=== PATIENT | female | born 1940 | race Caucasian/White ===

== ENCOUNTER 2017-11-22 15:32 | Emergency (ER) | payer MEDICARE ==
[2017-11-22 17:36] VITALS: BP 174/86; PULSE 71; O2SAT 100
--- NOTE | 2017-11-22 17:42 | ERPHSYRPT ---
- History of Present Illness Time Seen by Provider: 11/22/17 17:30 Source: patient, family (sister) Patient Subjective Stated Complaint: tripped and fell on rubber mat at 1400 today injuring forehead and nose. also having pain to right ear and right knee Triage Nursing Assessment: ambulated to room per self. skin w/d, color normal, resp nonlabored. small red area to right knee. abrasions to forehead and nose. slight pain to right ear. a/o times three. 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 Tripped on mat. Fell forward and hurt her head, face, and right knee. Nosebleed but it has stopped. Unsure last tetanus vaccine. No other injuries. No LOC. Some neck pain. No back pain. Lives at home with her . Occurred: this afternoon Loss of Consciousness: no loss of consciousness Severity of Pain-Max: mild Severity of Pain-Current: mild Allergies/Adverse Reactions: aspirin Allergy (Verified 11/22/17 17:27) Home Medications: Clopidogrel Bisulfate 75 mg [PLAVIX 75 MG Tablet] 75 mg PO DAILY 05/31/12 [ History] Potassium Chloride [Micro-K] 8 meq PO DAILY 05/31/12 [History] Simvastatin 20Mg [Zocor 20Mg] 40 mg PO DAILY 05/31/12 [History] Enalapril Maleate 10 mg [Vasotec 10 MG] 1 tab PO DAILY 09/24/15 [History] Flaxseed Oil [Flax Seed Oil] 1 tab PO DAILY 09/24/15 [History] Levofloxacin [Levaquin 500 MG Tablet] 500 mg PO 09/24/15 [History] Levothyroxine Sodium 75 Mcg [Synthroid 75 Mcg] 1 tab PO DAILY 09/24/15 [ History] Metoprolol Tartrate 50 mg [Lopressor 50 MG] 1 tab PO DAILY 09/24/15 [ History] Alendronate Sodium 70 mg [Fosamax 70 MG] 70 mg PO WEEKLY 11/22/17 [History ] Calcium Carbonate/Vitamin D3 [Caltrate 600 + D Soft Chew Tab] 1 each PO DAILY [History] Cholecalciferol (Vitamin D3) [Vitamin D3] 1,000 unit PO DAILY 11/22/17 [History] Cyanocobalamin (Vitamin B-12) [Vitamin B12] 2,500 mcg PO DAILY 11/22/17 [History ] Iron 65 mg PO DAILY 11/22/17 [History] Mv,Gerardo,Min/Iron/Folic Acid/Lut [Complete Multi Tablet] 1 each PO DAILY 11/22/17 [History] Hx Tetanus, Diphtheria Vaccination/Date Given: No Hx Influenza Vaccination/Date Given: Yes Hx Pneumococcal Vaccination/Date Given: Yes - Review of Systems Constitutional: No Symptoms Eyes: No Vision Changes Ears, Nose, & Throat: No Symptoms Respiratory: No Symptoms Cardiac: No Chest Pain, No Syncope Abdominal/Gastrointestinal: No Abdominal Pain, No Nausea, No Vomiting Musculoskeletal: Neck Pain, Fall, Injury, Joint Pain (right knee), No Back Pain Neurological: Headache, No Dizziness, No Focal Weakness, No Parasthesia All Other Systems: Reviewed and Negative - Past Medical History Pertinent Past Medical History: Yes Neurological History: Stroke Cardiac History: High Cholesterol, Hypertension Musculoskeletal History: Arthritis History: Other Psycho-Social History: No Pertinent History Female Reproductive Disorders: No Pertinent History Other Medical History: KIDNEY STONES - Past Surgical History Past Surgical History: Yes Gastrointestinal: Appendectomy, Cholecystectomy - Social History Smoking Status: Never smoker Exposure to second hand smoke: Yes Drug Use: none Patient Lives Alone: No - Female History Hx Now: No - Nursing Vital Signs Nursing Vital Signs: Initial Vital Signs Temperature 97.7 F 11/22/17 17:21 Pulse Rate 71 11/22/17 17:21 Respiratory Rate 16 11/22/17 17:21 Blood Pressure 174/86 11/22/17 17:21 O2 Sat by Pulse Oximetry 100 11/22/17 17:21 Pain Scale Pain Intensity 3 - [place] Coma Score Best Eye Response ([place]): (4) open spontaneously Best Verbal Response ([place]): (5) oriented Best Motor Response ([place]): (6) obeys commands [place] Total: 15 - Physical Exam General Appearance: alert Head Injury: swelling (over nose, abrasion and contusion right forehead) Eye Exam: PERRL/EOMI ENT Exam: airway nml, other (no nasal septal hematoma) Neck Exam: mid-line tenderness Respiratory/Chest Exam: normal breath sounds, No chest tenderness, No respiratory distress Cardiovascular Exam: normal heart sounds, regular rate/rhythm Gastrointestinal Exam: soft, No tenderness, No distention Back Exam: normal inspection, No vertebral tenderness Extremity Exam: normal inspection, normal range of motion, other (mild swelling of legs, right knee has mild tenderness) Neurologic Exam: alert, oriented x 3, 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, 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, sensation nml, No motor deficits Skin Exam: warm, dry, No rash SpO2 Interpretation: normal SpO2: 100 Oxygen Delivery: Room Air - Course Nursing assessment & vital signs reviewed: Yes Ordered Tests: Active Orders 24 hr Category Date Time Status Cold Application STAT Care 11/22/17 17:39 Active CERVICAL SPINE WO CONTRAST [CT] Stat Exams 11/22/17 18:47 Taken FACIAL BONES WO CONTRAST [CT] Stat Exams 11/22/17 18:40 Taken HEAD WITHOUT CONTRAST [CT] Stat Exams 11/22/17 18:38 Taken KNEE (3 VIEWS) Stat Exams 11/22/17 17:37 Taken - Progress Progress Note: 11/22/17 19:19 Cervical spine: joelee 6:56 PM 11/22/2017: Stable DDD compared to 09/24/15. No new or acute findings. Facial: joelee 6:54 PM 11/22/2017: No comps. Minimally depressed tiny R nasal bone fx. R TMJ DJD. Hard palate screws/hardware. 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 No new/acute findings. KNee not tender at superior patella. Will use alejandro, ice, walker, and follow up Dr Nia Montes De Oca. Counseled pt/family regarding: diagnosis, need for follow-up, rad results - Departure Time of Disposition: 19:20 Departure Disposition: Home Clinical Impression: Closed head injury Fall Qualifiers: Encounter type: initial encounter Qualified Code(s): W19.XXXA - Unspecified fall, initial encounter Nasal bone fracture Qualifiers: Encounter type: initial encounter Fracture type: closed Qualified Code(s): S02.2XXA - Fracture of nasal bones, initial encounter for closed fracture Knee sprain Qualifiers: Encounter type: initial encounter Involved ligament of knee: unspecified ligament Laterality: right Qualified Code(s): S83.91XA - Sprain of unspecified site of right knee, initial encounter Condition: Stable Critical Care Time: No Referrals: NIA MONTES DE OCA [Primary Care Provider] - Instructions: Preventing Falls, Going Up and Down Curbs or Stairs With a Walker or Crutches, Nose Fracture Additional Instructions: HEAD INJURY 1. A responsible person should observe the patient at home for 24 hours. 2. If any of the following signs or symptoms are observed or occur, call your family physician or return to the emergency department: A. Behavior change B. Persistent vomiting C. Unequal pupils D. Increasing drowsiness E. Difficulty in arousing the patient F. Severe headache G. Lump on head increasing in size Alejandro wrap to the right knee. Ice packs off and on. Tylenol or aleve as directed. Use a walker. Follow up with Dr Nia Montes De Oca.
--- NOTE | 2017-11-23 08:39 | XRAY ---
Indication: Pain and facial injury following fall. Multiple contiguous axial images obtained through the head without contrast. Comparison: September 24, 2015. Again old left cerebellar infarct. No acute intracranial hemorrhage, hydrocephalus, or mass effect. Villagran-white matter differentiation preserved. Fourth ventricle is midline. Bony calvarium intact. Visualized paranasal sinuses and mastoid air cells are clear. CT facial bones and CT cervical spine reported separately. Impression: Stable old left cerebellar infarct. No new or acute intracranial abnormalities. CT DI 47.50
--- NOTE | 2017-11-23 08:43 | XRAY ---
Indication: Pain and facial injury following fall. Multiple contiguous axial images obtained through the cervical spine. Sagittal and coronal reformatted images obtained. Comparison: September 24, 2015. Axial images again negative for acute fracture, suspicious bony lesions, or spinal canal stenosis. There remains mild multilevel degenerative endplate spurring and minimal multilevel bilateral degenerative facet arthropathy. Sagittal and coronal reformatted images demonstrates normal alignment with stable C6-C7 disc space narrowing. No acute compression fracture, subluxation, or jumped facet. Normal-appearing craniocervical junction. Visualized noncontrasted soft tissues again demonstrates minimal carotid calcifications bilaterally. Lung apices are clear. CT facial bones and CT head reported separately. Impression: 1. Negative acute fracture/subluxation. 2. Again incidental multilevel degenerative changes. CT DI 110.82
--- NOTE | 2017-11-23 08:47 | XRAY ---
Indication: Pain following fall. Comparison: None 3 views of the right knee demonstrates tibial tuberosity and suprapatellar spurring with small posterior fabella. No other bony, articular, or soft tissue abnormalities.
--- NOTE | 2017-11-23 08:47 | XRAY ---
Indication: Pain and facial injury following fall. Multiple contiguous axial images obtained through the facial bones. Comparison: None. There is tiny minimally depressed right nasal bone fracture. No other fracture or suspicious bony lesions. Orbits including roof, tse, and floors intact. Floor of the right maxillary sinus demonstrates minimal mucosal thickening. Remaining paranasal sinuses and nasal passages are clear. Patient is edentulous. There are multiple bilateral hard palate fixation screws/hardware. Moderate right TMJ degenerative changes. Visualized noncontrasted soft tissues unremarkable. CT head and CT cervical spine reported separately. Impression: 1. Tiny right nasal bone fracture. 2. Minimal right maxillary sinus disease and moderate right TMJ degenerative changes. CT DI 59.47
== END 2017-11-22 19:33 | disposition home or self-care (01) ==
LOC: ED 15:32
DX: S83.91XA Sprain of unspecified site of right knee, initial encounter (principal); S02.2XXA Fracture of nasal bones, initial encounter for closed fracture; W01.0XXA Fall on same level from slipping, tripping and stumbling without subsequent striking against object, initial encounter; Y92.59 Other trade areas as the place of occurrence of the external cause; Z79.899 Other long term (current) drug therapy; I10 Essential (primary) hypertension; E78.00 Pure hypercholesterolemia, unspecified; M54.2 Cervicalgia; M25.561 Pain in right knee; R51 Headache
CPT/HCPCS: 70450; 70486; 72125; 73562; 99283

== ENCOUNTER 2017-12-22 08:47 | Emergency (ER) | payer MEDICARE ==
--- NOTE | 2017-12-22 09:03 | ERPHSYRPT ---
- History of Present Illness Time Seen by Provider: 12/22/17 08:55 Source: patient Exam Limitations: no limitations Physician History: mild ache pain of the left ankle and foot for one day after slip and twisted it , painful ambulation, but pt refused pain med, no bleeding or other injury, not dizzy Occurred: yesterday Quality: constant Severity of Pain-Max: mild Lower Extremities Pain: foot: left, ankle: left Associated Symptoms: No dizzy Allergies/Adverse Reactions: aspirin Allergy (Verified 12/22/17 09:00) Home Medications: Clopidogrel Bisulfate 75 mg [PLAVIX 75 MG Tablet] 75 mg PO DAILY 05/31/12 [ History] Potassium Chloride [Micro-K] 8 meq PO DAILY 05/31/12 [History] Simvastatin 20Mg [Zocor 20Mg] 40 mg PO DAILY 05/31/12 [History] Enalapril Maleate 10 mg [Vasotec 10 MG] 1 tab PO DAILY 09/24/15 [History] Flaxseed Oil [Flax Seed Oil] 1 tab PO DAILY 09/24/15 [History] Levothyroxine Sodium 75 Mcg [Synthroid 75 Mcg] 1 tab PO DAILY 09/24/15 [ History] Metoprolol Tartrate 50 mg [Lopressor 50 MG] 1 tab PO DAILY 09/24/15 [ History] Alendronate Sodium 70 mg [Fosamax 70 MG] 70 mg PO WEEKLY 11/22/17 [History ] Calcium Carbonate/Vitamin D3 [Caltrate 600 + D Soft Chew Tab] 1 each PO DAILY [History] Cholecalciferol (Vitamin D3) [Vitamin D3] 1,000 unit PO DAILY 11/22/17 [History] Cyanocobalamin (Vitamin B-12) [Vitamin B12] 2,500 mcg PO DAILY 11/22/17 [History ] Iron 65 mg PO DAILY 11/22/17 [History] Mv,Gerardo,Min/Iron/Folic Acid/Lut [Complete Multi Tablet] 1 each PO DAILY 11/22/17 [History] Hx Tetanus, Diphtheria Vaccination/Date Given: No Hx Influenza Vaccination/Date Given: Yes Hx Pneumococcal Vaccination/Date Given: Yes - Review of Systems Constitutional: No Fever Respiratory: No Cough Cardiac: No Chest Pain Abdominal/Gastrointestinal: No Abdominal Pain Musculoskeletal: No Back Pain, No Neck Pain Skin: No Symptoms Neurological: No Dizziness - Past Medical History Pertinent Past Medical History: Yes Neurological History: Stroke Cardiac History: High Cholesterol, Hypertension Musculoskeletal History: Arthritis History: Other Psycho-Social History: No Pertinent History Female Reproductive Disorders: No Pertinent History Other Medical History: KIDNEY STONES - Past Surgical History Past Surgical History: Yes Gastrointestinal: Appendectomy, Cholecystectomy - Social History Smoking Status: Never smoker Exposure to second hand smoke: Yes Drug Use: none Patient Lives Alone: No - Nursing Vital Signs Nursing Vital Signs: Initial Vital Signs Temperature 98.1 F 12/22/17 08:54 Pulse Rate 48 L 12/22/17 08:54 Respiratory Rate 18 12/22/17 08:54 O2 Sat by Pulse Oximetry 99 12/22/17 08:54 Pain Scale Pain Intensity 6 - Physical Exam General Appearance: no apparent distress, other (tender sts lateral left ankle, rom limited by pain, sen and pulses intact, nontender knee) Neck Exam: normal inspection Mental Status Exam: alert, oriented x 3 Skin Exam: normal color, warm, dry - Course Nursing assessment & vital signs reviewed: Yes - Radiology Exams Ankle X-ray Interpretation: Discussed w/ radiologist, Other (fx of distal left fibula ) Ordered Tests: Active Orders 24 hr Category Date Time Status Splint STAT Care 12/22/17 09:43 Ordered ANKLE (3 VIEWS) Stat Exams 12/22/17 08:58 Completed FOOT (MINIMUM 3 VIEWS) Stat Exams 12/22/17 08:58 Completed - Progress Progress: improved Progress Note: 12/22/17 09:47 splint applied nonweight bearing tylenol, ice and elevation see [facility] [phone] return if worse Discussed with : Adiel ([facility]) Will see patient in: office Counseled pt/family regarding: diagnosis, need for follow-up, rad results - Departure Time of Disposition: 09:48 Departure Disposition: Home Clinical Impression: Fracture, ankle Qualifiers: Encounter type: initial encounter Fracture type: closed Laterality: left Qualified Code(s): S82.892A - Other fracture of left lower leg, initial encounter for closed fracture Condition: Stable Critical Care Time: No Referrals: NIA MONTES DE OCA [Primary Care Provider] - Instructions: Foot Fracture (DC)
--- NOTE | 2017-12-22 09:40 | XRAY ---
Indication: Pain following fall. Comparison: None 3 views of the left ankle demonstrates minimally displaced distal fibular oblique fracture with soft tissue swelling. Elsewhere osteopenia, moderate heel spurs, posterior heel orthopedic tacks, and partial Achilles tendon calcifications.
--- NOTE | 2017-12-22 09:40 | XRAY ---
Indication: Pain following fall. Comparison: None 3 nonweightbearing views of the left foot demonstrates minimally displaced distal fibular oblique fracture with soft tissue swelling. Elsewhere osteopenia, moderate heel spurs, posterior heel orthopedic tacks, cuboid accessory ossicles, and partial Achilles tendon calcifications.
[2017-12-22 10:37] VITALS: BP 154/48; PULSE 44; O2SAT 98
== END 2017-12-22 10:38 | disposition home or self-care (01) ==
LOC: ED 08:47
DX: S82.892A Other fracture of left lower leg, initial encounter for closed fracture (principal); Z79.01 Long term (current) use of anticoagulants; Z79.899 Other long term (current) drug therapy; X50.1XXA Overexertion from prolonged static or awkward postures, initial encounter
CPT/HCPCS: 73610; 73630; 99283

== ENCOUNTER 2020-08-07 01:20 | Emergency (ER) | payer MEDICARE ==
[2020-08-07 01:25] VITALS: O2SAT 98
[2020-08-07] MEDS ORDERED: MOTRIN 600 MG PO ONE (01:35)
[2020-08-07] MEDS ORDERED: TYLENOL EXTRA STRENGTH 500 MG PO STA (01:35)
--- NOTE | 2020-08-07 01:35 | ERPHSYRPT ---
- History of Present Illness Time Seen by Provider: 08/07/20 01:22 Source: patient Exam Limitations: no limitations Physician History: Patient is here with a fall at home just prior to arrival. Patient states that she fell out of bed. Initially only complaining of right shoulder pain per EMS. Initially called out as a lift assist. However, given her continued shoulder pain she requested to be brought to the hospital. She denies any other injuries. Denies any chest pain, fever, chills, nausea, vomiting, shortness of breath. She has not tried to make it better or worse. She not taken any Tylenol, ibuprofen. Location:right shoulder Quality: sharp Radiation: none Severity: moderate Duration: Just [employer] Timing: after fall Modifying factors/associated signs and symptoms: none tried Timing/Duration: today Severity: mild Modifying Factors: Improves With: movement Allergies/Adverse Reactions: aspirin Allergy (Verified 12/22/17 09:00) Home Medications: Simvastatin 20Mg [Zocor 20Mg] 40 mg PO DAILY 05/31/12 [History] Levothyroxine Sodium 75 Mcg [Synthroid 75 Mcg] 1 tab PO DAILY 09/24/15 [History] Metoprolol Tartrate 50 mg [Lopressor 50 MG] 1 tab PO DAILY 09/24/15 [History] Cholecalciferol (Vitamin D3) [Vitamin D3] 400 unit PO DAILY 11/22/17 [History] Cyanocobalamin (Vitamin B-12) [Vitamin B12] 500 mcg PO DAILY 11/22/17 [History] Iron 65 mg PO DAILY 11/22/17 [History] Mv,Gerardo,Min/Iron/Folic Acid/Lut [Complete Multi Tablet] 1 each PO DAILY 11/22/17 [History] Ascorbic Acid [Vitamin C] 1,000 mg PO DAILY 08/07/20 [History] C,E,Zinc,Copper 11/Nbgod7v/Lut [Ocuvite Adult 50 Plus Softgel] 1 cap PO DAILY 08/07/20 [History] Clopidogrel Bisulfate [Clopidogrel] 75 mg PO DAILY 08/07/20 [History] Docusate Sodium [Stool Softener] 50 mg PO DAILY PRN PRN 08/07/20 [History] Hydralazine HCl 50 mg PO TID 08/07/20 [History] Omeprazole 20 mg PO TID 08/07/20 [History] Hx Tetanus, Diphtheria Vaccination/Date Given: No Hx Influenza Vaccination/Date Given: Yes Hx Pneumococcal Vaccination/Date Given: Yes - Review of Systems Constitutional: No Fever, No Chills Eyes: No Symptoms Ears, Nose, & Throat: No Symptoms Respiratory: No Cough, No Dyspnea Cardiac: No Chest Pain, No Edema, No Syncope Abdominal/Gastrointestinal: No Abdominal Pain, No Nausea, No Vomiting, No Diarrhea Genitourinary Symptoms: No Dysuria Musculoskeletal: Other (right shoulder pain), No Back Pain, No Neck Pain Skin: No Rash Neurological: No Dizziness, No Focal Weakness, No Sensory Changes Psychological: No Symptoms Endocrine: No Symptoms All Other Systems: Reviewed and Negative - Past Medical History Pertinent Past Medical History: Yes Neurological History: Stroke Cardiac History: High Cholesterol, Hypertension Respiratory History: Pneumonia Endocrine Medical History: Hypothyroidism Musculoskeletal History: Fractures, Osteoarthritis History: Other Psycho-Social History: No Pertinent History Female Reproductive Disorders: No Pertinent History Other Medical History: HX FX LEFT ANKLE WITH ORIF. PER PATIENT ACHILLES TENDON TEARS BILATERALLY - LEFT REPAIRED ABOUT 4 YEARS AGO. STATES HAD A STROKE AT 18 WITH A "BUSTED BLOOD VESSEL IN THE BACK OF MY HEAD AND WAS IN THE [facility] 6 WEEKS: AFFECTING LEFT SIDE AND "HAD TO LEARN TO WALK AGAIN". HAD ANOTHER STROKE 10 YEARS AGO AFFECTING GAIT BUT WAS NOT HOSPITALIZED. STATES SHE HAS MINI STROKES WHICH MAKE HER SLEEPY AND AFFECT HER WALKING BRIEFLY THEN WILL GET BETTER. - Past Surgical History Past Surgical History: Yes Gastrointestinal: Appendectomy, Cholecystectomy - Social History Smoking Status: Never smoker Exposure to second hand smoke: Yes Drug Use: none Patient Lives Alone: No - Nursing Vital Signs Nursing Vital Signs: Initial Vital Signs Temperature 98.1 F 08/07/20 01:20 Pulse Rate 71 08/07/20 01:20 Respiratory Rate 20 08/07/20 01:20 Blood Pressure 193/73 08/07/20 01:20 O2 Sat by Pulse Oximetry 98 08/07/20 01:20 Pain Scale Pain Intensity 2 - Physical Exam General Appearance: no apparent distress, alert Eye Exam: PERRL/EOMI, eyes nml inspection Ears, Nose, Throat Exam: normal ENT inspection, TMs normal, pharynx normal, moist mucous membranes Neck Exam: normal inspection, non-tender, supple, full range of motion Respiratory Exam: normal breath sounds, lungs clear, No respiratory distress Cardiovascular Exam: regular rate/rhythm, normal heart sounds, normal peripheral pulses Gastrointestinal/Abdomen Exam: soft, normal bowel sounds, No tenderness, No mass Back Exam: normal inspection, normal range of motion, No CVA tenderness, No vertebral tenderness Extremity Exam: normal inspection, normal range of motion, pelvis stable Neurologic Exam: alert, oriented x 3, cooperative, normal mood/affect, nml cerebellar function, nml station & gait, sensation nml, No motor deficits Skin Exam: normal color, warm, dry, No rash Lymphatic Exam: No adenopathy SpO2 Interpretation: normal SpO2: 98 Comments: 08/07/20 01:34 Right shoulder pain. No obvious deformity, sensation intact, 2+ capillary refill, 2 point tactile discrimination intact. 5 out of 5 strength. Full range of motion with some pain. Compartments are soft, nontender. Overlying skin shows no tenting, bruising, ecchymosis. - Course Nursing assessment & vital signs reviewed: Yes Ordered Tests: Active Orders 24 hr Category Date Time Status EKG-ER Only STAT Care 08/07/20 01:23 Active CERVICAL SPINE WO CONTRAST [CT] Stat Exams 08/07/20 01:52 Taken CHEST 1 VIEW (PORTABLE) Stat Exams 08/07/20 01:24 Taken HEAD WITHOUT CONTRAST [CT] Stat Exams 08/07/20 01:22 Taken SHOULDER Stat Exams 08/07/20 01:53 Taken CBC W DIFF Stat Lab 08/07/20 02:10 Completed CMP Stat Lab 08/07/20 02:10 Completed LIPASE Stat Lab 08/07/20 02:10 Completed Lactic Acid Stat Lab 08/07/20 02:20 Completed TROPONIN Q3H Lab 08/07/20 02:10 Completed TROPONIN Q3H Lab 08/07/20 05:00 Ordered TROPONIN Q3H Lab 08/07/20 08:00 Ordered TROPONIN Q3H Lab 08/07/20 11:00 Ordered TROPONIN Q3H Lab 08/07/20 14:00 Ordered Medication Summary Discontinued Medications Generic Name Dose Route Start Last Admin Trade Name Freq PRN Reason Stop Dose Admin Acetaminophen 1,000 mg 08/07/20 01:35 08/07/20 02:33 Tylenol Extra Strength 500 Mg PO 08/07/20 01:36 1,000 mg STAT STA Administration Acetaminophen Confirm 08/07/20 02:19 Tylenol Extra Strength 500 Mg Administered 08/07/20 02:20 Dose 1,000 mg .ROUTE .STK-MED ONE Ibuprofen 600 mg 08/07/20 01:35 08/07/20 02:30 Motrin 600 Mg PO 08/07/20 01:36 600 mg STAT ONE Administration Ibuprofen Confirm 08/07/20 02:19 Motrin 600 Mg Administered 08/07/20 02:20 Dose 600 mg .ROUTE .STK-MED ONE Labetalol HCl 10 mg 08/07/20 02:36 Trandate 20 Mg/5 Ml Syringe IV 08/07/20 02:37 STAT ONE Labetalol HCl Confirm 08/07/20 02:48 Trandate 20 Mg/5 Ml Syringe Administered 08/07/20 02:49 Dose 20 mg IV .STK-MED ONE Lab/Rad Data: Laboratory Result Diagrams 08/07/20 02:10 08/07/20 02:10 Laboratory Results 08/07/20 08/07/20 08/07/20 Range/Units 02:20 02:10 02:10 WBC (4.0-10.5) K/mm3 RBC (4.1-5.4) M/mm3 Hgb (12.0-16.0) gm/dl Hct (35-47) % MCV (78-100) fl MCH (26-32) pg MCHC (32-36) g/dl RDW (11.5-14.0) % Plt Count (150-450) K/mm3 MPV (7.5-11.0) fl Gran % (36.0-66.0) % Eos # (Auto) (0-0.5) Absolute Lymphs (auto) (1.0-4.6) Absolute Monos (auto) (0.0-1.3) Lymphocytes % (24.0-44.0) % Monocytes % (0.0-12.0) % Eosinophils % (0.00-5.0) % Basophils % (0.0-0.4) % Absolute Granulocytes (1.4-6.9) Basophils # (0-0.4) Sodium 139 (137-145) mmol/L Potassium 3.0 L (3.5-5.1) mmol/L Chloride 102 (98-107) mmol/L Carbon Dioxide 30 (22-30) mmol/L Anion Gap 9.4 (5-15) MEQ/L BUN 12 (7-17) mg/dL Creatinine 0.97 (0.52-1.04) mg/dL Estimated GFR 58.6 ML/MIN Glucose 134 H (74-106) mg/dL Lactic Acid 1.9 (0.4-2.0) Calcium 10.4 H (8.4-10.2) mg/dL Total Bilirubin 0.70 (0.2-1.3) mg/dL AST 38 H (14-36) U/L ALT 16 (0-35) U/L Alkaline Phosphatase 109 (38-126) U/L Troponin I < 0.012 (0.000-0.034) ng/mL Serum Total Protein 7.7 (6.3-8.2) g/dL Albumin 4.1 (3.5-5.0) g/dL Lipase 130 (23-300) U/L 08/07/20 Range/Units 02:10 WBC 14.5 H (4.0-10.5) K/mm3 RBC 4.23 (4.1-5.4) M/mm3 Hgb 12.6 (12.0-16.0) gm/dl Hct 38.8 (35-47) % MCV 91.7 (78-100) fl MCH 29.8 (26-32) pg MCHC 32.5 (32-36) g/dl RDW 14.0 (11.5-14.0) % Plt Count 247 (150-450) K/mm3 MPV 12.0 H (7.5-11.0) fl Gran % 87.8 H (36.0-66.0) % Eos # (Auto) 0.06 (0-0.5) Absolute Lymphs (auto) 0.81 L (1.0-4.6) Absolute Monos (auto) 0.88 (0.0-1.3) Lymphocytes % 5.6 L (24.0-44.0) % Monocytes % 6.1 (0.0-12.0) % Eosinophils % 0.4 (0.00-5.0) % Basophils % 0.1 (0.0-0.4) % Absolute Granulocytes 12.73 H (1.4-6.9) Basophils # 0.02 (0-0.4) Sodium (137-145) mmol/L Potassium (3.5-5.1) mmol/L Chloride (98-107) mmol/L Carbon Dioxide (22-30) mmol/L Anion Gap (5-15) MEQ/L BUN (7-17) mg/dL Creatinine (0.52-1.04) mg/dL Estimated GFR ML/MIN Glucose (74-106) mg/dL Lactic Acid (0.4-2.0) Calcium (8.4-10.2) mg/dL Total Bilirubin (0.2-1.3) mg/dL AST (14-36) U/L ALT (0-35) U/L Alkaline Phosphatase (38-126) U/L Troponin I (0.000-0.034) ng/mL Serum Total Protein (6.3-8.2) g/dL Albumin (3.5-5.0) g/dL Lipase (23-300) U/L - Progress Progress: improved Progress Note: 08/07/20 01:[address] head and neck. We will also obtain shoulder and CXR. 08/07/20 02:03 ED critical care statement As staff physician, I have provided critical care. Time: 45 mins Criteria for critical illness: Cerebellar hemorrhage, subdural hematoma, head bleed, traumatic injury, traumatic fall Treatment and management provided include: Coordination of management with ETC care team, consultants, and inpatient care team. [id number] assessment of condition and response to therapy. Review and interpretation of emergent diagnostic testing. Medical chart review and completion. Direction and immediate supervision of the following therapy: Critical care was time spent personally by me on the following activities: blood draw for specimens, development of treatment plan with patient or surrogate, discussions with consultants, discussions with primary provider, interpretation of cardiac output measurements, evaluation of patient's response to treatment, examination of patient, obtaining history from patient or surrogate, ordering and performing treatments and interventions, ordering and review of laboratory studies, ordering and review of radiographic studies, pulse oximetry, re-evaluation of patient's condition and review of old charts. This time was independent of all procedures performed. Lauri Aviles Patient appears to have a cerebellar hemorrhage on CT scan my read. Given this I did call [facility]. Spoke with on-call trauma surgeon, Dr. Montgomery. She did accept the patient to her service. Patient go ER to ER. We will follow basic head bleed protocol. Will lower blood pressure with labetalol IV. Will place bed at 30 degrees. Doing our best to decrease intracranial pressure and possible herniation. - Departure Departure Disposition: Transfer Clinical Impression: Cerebellar hemorrhage, acute, Subdural hematoma Condition: Stable Critical Care Time: Yes Critical Care Time(excluding separately billable procedures): Critical 30-74 mins Referrals: NIA MONTES DE OCA [Primary Care Provider] -
[2020-08-07] MEDS ORDERED: MOTRIN 600 MG ONE (02:19)
[2020-08-07] MEDS ORDERED: TYLENOL EXTRA STRENGTH 500 MG ONE (02:19)
[2020-08-07 02:24] LABS: Absolute Neutrophil Ct (ANC) 12.73 (1.4-6.9); BASOPHIL % 0.1 % (0.0-0.4); Basophil (Absolute #) 0.02 (0-0.4); Eosinophil % 0.4 % (0.00-5.0); Eosinophil (Absolute #) 0.06 (0-0.5); Hematocrit 38.8 % (35-47); Hemoglobin 12.6 gm/dl (12.0-16.0); Lymphocyte (Absolute #) 0.81 (1.0-4.6); Lymphocytes % 5.6 % (24.0-44.0); Mean Cell Volume 91.7 fl (78-100); Mean Corpuscular Hemoglobin 29.8 pg (26-32); Mean Corpuscular Hgb Concent. 32.5 g/dl (32-36); Monocyte (Absolute #) 0.88 (0.0-1.3); Monocytes % 6.1 % (0.0-12.0); Neutrophil % 87.8 % (36.0-66.0); Platelet Count 247 K/mm3 (150-450); Red Blood Count 4.23 M/mm3 (4.1-5.4); White Blood Count 14.5 K/mm3 (4.0-10.5)
[2020-08-07 02:36] LABS: ALBUMIN 4.1 g/dL (3.5-5.0); ANION GAP 9.4 MEQ/L (5-15); BILIRUBIN,TOTAL 0.7 mg/dL (0.2-1.3); Calcium 10.4 mg/dL (8.4-10.2); Creatinine 1 0.97 mg/dL (0.52-1.04); EST GLOMERULAR FILTRATION RATE 58.6 ML/MIN; Total Protein 7.7 g/dL (6.3-8.2)
[2020-08-07] MEDS ORDERED: TRANDATE 20 MG/4 ML SYRINGE IV ONE ×2 (02:36→02:48)
[2020-08-07 03:17] VITALS: BP 167/66; PULSE 68
[2020-08-07 03:47] LABS: Slide Review 1 YES
--- NOTE | 2020-08-07 09:03 | XRAY ---
Indication: Posterior pain following fall. Multiple contiguous axial images obtained through the head without contrast. Comparison: November 22, 2017. Stable age-appropriate global atrophy. Left cerebellum demonstrates new intraparenchymal acute hemorrhage extending into the fourth ventricle measuring at least 4.0 x 4.8 x 2.8 cm. Acute hemorrhage further extends into the left perimesencephalic cistern, third ventricle, and lesser degree both lateral ventricles with subsequent new moderate hydrocephalus. No midline shifting. Bony calvarium intact. Mild mucosal thickening of both ethmoid sinuses and lesser degree right sphenoid with tiny left maxillary sinus fluid leveling. Mastoid air cells are clear. Impression: 1. New left posterior fossa acute intraparenchymal hemorrhage with intraventricular and perimesencephalic cistern extension as detailed. Resulting new hydrocephalus. 2. Incidental paranasal sinus disease. Comment: Preliminary interpretation was made by [facility]. No critical discrepancy.
--- NOTE | 2020-08-07 09:07 | XRAY ---
Indication: Posterior neck pain following fall. Multiple contiguous axial images obtained through the cervical spine. Sagittal and coronal reformatted images obtained. Comparison: November 22, 2017. CT head reported separately. Stable osteopenia. Axial images negative for acute fracture, suspicious bony lesions, or spinal canal stenosis. There remains mild multilevel degenerative endplate spurring and mild multilevel bilateral Genter facet arthropathy. Sagittal and coronal reformatted images again demonstrates normal alignment with stable C6-7 C7 disc space narrowing. No acute compression fracture, subluxation, or jumped facet. Normal appearing craniocervical junction. Visualized noncontrasted soft tissues again demonstrates bilateral carotid calcifications are lung apices are clear. Impression: 1. Continued negative negative acute fracture/subluxation. 2. Again incidental osteopenia multilevel degenerative changes. Comment: Preliminary interpretation was made by [facility]. No critical discrepancy.
--- NOTE | 2020-08-07 09:09 | XRAY ---
Indication: Status post fall. Comparison: None Portable chest slightly underinflated crowding the lung bases. No focal infiltrate, consolidation, or large effusion. A few incidental tiny calcified granulomas. Heart is not enlarged. Bony thorax intact with osteopenia and degenerative changes. Query nondisplaced lateral right 8 rib fracture of uncertain chronicity. Impression: Query right 8 rib fracture. Otherwise nonacute chest with chronic features.
--- NOTE | 2020-08-07 09:13 | XRAY ---
Indication: Pain following fall. Comparison: None 3 view right shoulder demonstrates osteopenia, moderate AC degenerative arthropathy, moderate glenohumeral degenerative arthropathy, and mild degenerative changes throughout the spine. Nondisplaced lateral right 8 rib fracture of uncertain chronicity. No other bony, articular, or soft tissue abnormalities.
== END 2020-08-07 03:17 | disposition short-term general hospital (02) ==
LOC: ED 01:20
DX: S06.5X9A Traumatic subdural hemorrhage with loss of consciousness of unspecified duration, initial encounter (principal); M25.511 Pain in right shoulder; W06.XXXA Fall from bed, initial encounter; I10 Essential (primary) hypertension; E78.00 Pure hypercholesterolemia, unspecified; E03.9 Hypothyroidism, unspecified; Z86.73 Personal history of transient ischemic attack (TIA), and cerebral infarction without residual deficits; Z79.899 Other long term (current) drug therapy
CPT/HCPCS: 36415; 70450; 71045; 72125; 73030; 80053; 83605; 83690; 84484; 85025; 93005; 99285; 99291; A9270-GY

== ENCOUNTER 2021-07-30 15:31 | Observation (INO) | payer MEDICARE ==
--- NOTE | 2021-07-30 15:38 | ERPHSYRPT ---
- History of Present Illness Time Seen by Provider: 07/30/21 15:33 Source: patient Exam Limitations: no limitations Physician History: This is an 81-year-old white female who slipped and fell in the bathroom hitting her left posterior lateral ribs against a cabinet. Patient is on Plavix and there is bruising and swelling noted. This occurred just prior to arrival. She has some left upper quad abdominal pain as well. There is been no nausea vomiting or diarrhea. She denies anterior chest pain she is not short of breath. Occurred: just prior to arrival Reason for Fall: slipped Loss of Consciousness: no loss of consciousness Quality: aching Severity of Pain-Max: moderate Severity of Pain-Current: moderate Modifying Factors: Improves With: movement Associated Symptoms (Fall): denies symptoms Allergies/Adverse Reactions: aspirin Allergy (Verified 12/22/17 09:00) Home Medications: Simvastatin 20Mg [Zocor 20Mg] 40 mg PO DAILY 05/31/12 [History] Levothyroxine Sodium 75 Mcg [Synthroid 75 Mcg] 1 tab PO DAILY 09/24/15 [History] Metoprolol Tartrate 50 mg [Lopressor 50 MG] 1 tab PO DAILY 09/24/15 [History] Cholecalciferol (Vitamin D3) [Vitamin D3] 400 unit PO DAILY 11/22/17 [History] Cyanocobalamin (Vitamin B-12) [Vitamin B12] 500 mcg PO DAILY 11/22/17 [History] Iron 65 mg PO DAILY 11/22/17 [History] Mv,Gerardo,Min/Iron/Folic Acid/Lut [Complete Multi Tablet] 1 each PO DAILY 11/22/17 [History] Ascorbic Acid [Vitamin C] 1,000 mg PO DAILY 08/07/20 [History] C,E,Zinc,Copper 11/Exctl0o/Lut [Ocuvite Adult 50 Plus Softgel] 1 cap PO DAILY 08/07/20 [History] Clopidogrel Bisulfate [Clopidogrel] 75 mg PO DAILY 08/07/20 [History] Docusate Sodium [Stool Softener] 50 mg PO DAILY PRN PRN 08/07/20 [History] Hydralazine HCl 50 mg PO TID 08/07/20 [History] Omeprazole 20 mg PO TID 08/07/20 [History] Hx Tetanus, Diphtheria Vaccination/Date Given: No Hx Influenza Vaccination/Date Given: Yes Hx Pneumococcal Vaccination/Date Given: Yes Travel Risk - International Travel Have you traveled outside of the country in past 3 weeks: No - Coronavirus Screening Are you exhibiting any of the following symptoms?: No Close contact with a COVID-19 positive Pt in past 14-21 Days: No - Review of Systems Constitutional: No Symptoms Eyes: No Symptoms Ears, Nose, & Throat: No Symptoms Respiratory: No Symptoms Cardiac: No Symptoms Abdominal/Gastrointestinal: No Symptoms Genitourinary Symptoms: No Symptoms Musculoskeletal: Fall, Injury (Left lower posterior lateral ribs) Skin: No Symptoms Neurological: No Symptoms Psychological: No Symptoms Endocrine: No Symptoms Hematologic/Lymphatic: No Symptoms Immunological/Allergic: No Symptoms All Other Systems: Reviewed and Negative - Past Medical History Pertinent Past Medical History: Yes Neurological History: Stroke ENT History: No Pertinent History Cardiac History: High Cholesterol, Hypertension Respiratory History: Pneumonia Endocrine Medical History: Hypothyroidism Musculoskeletal History: Fractures, Osteoarthritis GI Medical History: No Pertinent History History: Other Psycho-Social History: No Pertinent History Female Reproductive Disorders: No Pertinent History Other Medical History: HX FX LEFT ANKLE WITH ORIF. PER PATIENT ACHILLES TENDON TEARS BILATERALLY - LEFT REPAIRED ABOUT 4 YEARS AGO. STATES HAD A STROKE AT 18 WITH A "BUSTED BLOOD VESSEL IN THE BACK OF MY HEAD AND WAS IN THE [facility] 6 WEEKS: AFFECTING LEFT SIDE AND "HAD TO LEARN TO WALK AGAIN". HAD ANOTHER STROKE 10 YEARS AGO AFFECTING GAIT BUT WAS NOT HOSPITALIZED. STATES SHE HAS MINI STROKES WHICH MAKE HER SLEEPY AND AFFECT HER WALKING BRIEFLY THEN WILL GET BETTER. - Past Surgical History Past Surgical History: Yes Gastrointestinal: Appendectomy, Cholecystectomy - Social History Smoking Status: Never smoker Exposure to second hand smoke: Yes Drug Use: none Patient Lives Alone: No - Nursing Vital Signs Nursing Vital Signs: Initial Vital Signs Temperature 98.5 F 07/30/21 15:33 Pulse Rate 108 H 07/30/21 15:33 Respiratory Rate 26 H 07/30/21 15:33 Blood Pressure 200/102 07/30/21 15:33 O2 Sat by Pulse Oximetry 98 07/30/21 15:33 Pain Scale Pain Intensity 8 - [place] Coma Score Best Eye Response ([place]): (4) open spontaneously Best Verbal Response ([place]): (5) oriented Best Motor Response ([place]): (6) obeys commands [place] Total: 15 - Physical Exam General Appearance: mild distress (To moderate), alert, anxiety, obese Head Injury: no evidence of injury Eye Exam: PERRL/EOMI, eyes nml inspection ENT Exam: airway nml, nml ext.inspection Neck Exam: supple, trachea midline, full range of motion, normal alignment Respiratory/Chest Exam: normal breath sounds, ecchymosis, rib tenderness (Left lower posterior lateral ribs), No respiratory distress, No crepitus Cardiovascular Exam: normal heart sounds, regular rate/rhythm, normal peripheral pulses Gastrointestinal Exam: soft, normal bowel sounds, tenderness (Mild left upper quadrant) Rectal Exam: not done Back Exam: normal inspection, normal range of motion, No CVA tenderness, No vertebral tenderness Extremity Exam: normal inspection, normal range of motion, capillary refill <3 sec, pelvis stable Neurologic Exam: alert, oriented x 3, cooperative, assistant therapy aide II-XII nml as tested, normal mood/affect, nml cerebellar function, nml station & gait, sensation nml Skin Exam: normal color, warm, dry SpO2 Interpretation: normal O2 Delivery: Room Air - Course Nursing assessment & vital signs reviewed: Yes Ordered Tests: Active Orders 24 hr Category Date Time Status IV Insertion STAT Care 07/30/21 15:40 Active ABDOMEN AND PELVIS W/0 CONTRAS [CT] Stat Exams 07/30/21 15:39 Completed CHEST WITHOUT CONTRAST [CT] Stat Exams 07/30/21 15:38 Completed BMP Stat Lab 07/30/21 18:19 Completed CBC W DIFF Stat Lab 07/30/21 18:19 Completed PROTIME WITH INR Stat Lab 07/30/21 18:19 Completed Transfer Order Routine Transfer 07/30/21 Ordered Medication Summary Discontinued Medications Generic Name Dose Route Start Last Admin Trade Name Freq PRN Reason Stop Dose Admin Hydromorphone HCl 0.5 mg 07/30/21 16:15 07/30/21 16:21 Hydromorphone 1 Mg/1ml Inj 1 Mg/Ml Syringe IV 07/30/21 16:16 0.5 mg STAT ONE Administration Hydromorphone HCl Confirm 07/30/21 16:17 Hydromorphone 1 Mg/1ml Inj 1 Mg/Ml Syringe Administered 07/30/21 16:18 Dose 1 mg .ROUTE .STK-MED ONE Morphine Sulfate 4 mg 07/30/21 15:39 07/30/21 16:32 Morphine Sulfate 4 Mg/Ml Injection IV 07/30/21 15:40 Not Given STAT ONE Ondansetron HCl 4 mg 07/30/21 15:39 07/30/21 16:22 Ondansetron Hcl 4 Mg/2 Ml Vial IV 07/30/21 15:40 4 mg STAT ONE Administration Ondansetron HCl Confirm 07/30/21 16:17 Ondansetron Hcl 4 Mg/2 Ml Vial Administered 07/30/21 16:18 Dose 4 mg .ROUTE .STK-MED ONE Lab/Rad Data: Laboratory Result Diagrams 07/30/21 18:19 07/30/21 18:19 Laboratory Results 07/30/21 07/30/21 07/30/21 Range/Units 18:19 18:19 18:19 WBC 10.1 (4.0-10.5) K/mm3 RBC 3.96 L (4.1-5.4) M/mm3 Hgb 11.7 L (12.0-16.0) gm/dl Hct 36.9 (35-47) % MCV 93.2 (78-100) fl MCH 29.5 (26-32) pg MCHC 31.7 L (32-36) g/dl RDW 13.3 (11.5-14.0) % Plt Count 259 (150-450) K/mm3 MPV 11.3 H (7.5-11.0) fl Gran % 79.5 H (36.0-66.0) % Eos # (Auto) 0.06 (0-0.5) Absolute Lymphs (auto) 1.30 (1.0-4.6) Absolute Monos (auto) 0.70 (0.0-1.3) Lymphocytes % 12.9 L (24.0-44.0) % Monocytes % 6.9 (0.0-12.0) % Eosinophils % 0.6 (0.00-5.0) % Basophils % 0.1 (0.0-0.4) % Absolute Granulocytes 8.02 H (1.4-6.9) Basophils # 0.01 (0-0.4) PT 11.6 (9.4-12.5) SECONDS INR 0.98 (0.8-3.0) Sodium 138 (137-145) mmol/L Potassium 3.2 L (3.5-5.1) mmol/L Chloride 102 (98-107) mmol/L Carbon Dioxide 28 (22-30) mmol/L Anion Gap 11.0 (5-15) MEQ/L BUN 7 (7-17) mg/dL Creatinine 1.05 H (0.52-1.04) mg/dL Estimated GFR 53.3 ML/MIN Glucose 113 H (74-106) mg/dL Calcium 9.2 (8.4-10.2) mg/dL - Progress Progress: improved, pain not gone completely, re-examined Progress Note: 07/30/21 17:56 CAT scan of the abdomen and pelvis without contrast shows a normal spleen. There are chronic bony findings. There is no acute intra-abdominal or intrapelvic ab normalities. CAT scan of the chest without contrast shows acute rib fractures 7 and 8 on the left side. They are minimally displaced. There is no pneumothorax. There is a small hemothorax present. Counseled pt/family regarding: lab results, diagnosis, rad results - Departure Departure Disposition: Observation Clinical Impression: Fall with injury, Left rib fracture, Intractable pain Condition: Stable Critical Care Time: No Referrals: NIA MONTES DE OCA [Primary Care Provider] -
[2021-07-30] MEDS ORDERED: Zofran 4 MG/2 ML VIAL IV ONE (15:39)
[2021-07-30] MEDS ORDERED: MORPHINE SULFATE 4 MG INJ IV ONE (15:39)
[2021-07-30] MEDS ORDERED: Hydromorphone 1 mg/ml Injection IV ONE ×2 (16:15→22:29)
[2021-07-30] MEDS ORDERED: Hydromorphone 1 mg/ml Injection ONE ×2 (16:17→22:30)
[2021-07-30] MEDS ORDERED: Zofran 4 MG/2 ML VIAL ONE (16:17)
--- NOTE | 2021-07-30 17:04 | XRAY ---
Indication: Left lower rib pain following fall. Multiple contiguous axial images obtained through the chest without contrast. Comparison: None Lungs demonstrate mild bilateral dependent atelectasis, small left effusion, and tiny left lower lobe calcified granuloma. No suspicious pulmonary mass or pneumothorax. Heart borderline enlarged. Aorta is mildly arteriosclerotic without aneurysm. Tiny left hilar calcified nodes. No pathologic mediastinal lymphadenopathy. Small hiatal hernia. Osseous structures demineralized consistent with patient's age. Flowing osteophytes throughout the spine and old right 8 rib fracture. Minimally displaced left posterior 7/[address] abdomen/pelvis report separately. Impression: 1. Left 7/8 acute rib fractures with small hemothorax. No pneumothorax. 2. Borderline cardiomegaly, small hiatal hernia, chronic bony findings, and old granulomatous disease.
--- NOTE | 2021-07-30 17:09 | XRAY ---
Indication: Left upper abdomen pain on palpation. Status post fall. Multiple contiguous axial images obtained through the abdomen and pelvis without contrast. Comparison: None CT chest reported separately. Noncontrasted stomach and bowel loops appear nonobstructed. Scattered descending and sigmoid diverticulosis without diverticulitis. Previous cholecystectomy. No free fluid/air. Remaining liver, pancreas, spleen, adrenal glands, kidneys, ureters, bladder, and uterus are unremarkable for noncontrast exam. Moderate scattered aortoiliac calcifications without AAA. Osseous structures demonstrates osteopenia, mild/moderate degenerative spondylosis throughout the spine, prominent T12 Schmorl node, and mild bilateral hip degenerative arthropathy. Impression: 1. Colonic diverticulosis and chronic bony findings. 2. Remaining CT abdomen/pelvis without contrast exam is negative.
[2021-07-30 18:24] LABS: Absolute Neutrophil Ct (ANC) 8.02 (1.4-6.9); BASOPHIL % 0.1 % (0.0-0.4); Basophil (Absolute #) 0.01 (0-0.4); Eosinophil % 0.6 % (0.00-5.0); Eosinophil (Absolute #) 0.06 (0-0.5); Hematocrit 36.9 % (35-47); Hemoglobin 11.7 gm/dl (12.0-16.0); Lymphocytes % 12.9 % (24.0-44.0); Mean Cell Volume 93.2 fl (78-100); Mean Corpuscular Hemoglobin 29.5 pg (26-32); Mean Corpuscular Hgb Concent. 31.7 g/dl (32-36); Mean Platelet Volume 11.3 fl (7.5-11.0); Monocytes % 6.9 % (0.0-12.0); Neutrophil % 79.5 % (36.0-66.0); Platelet Count 259 K/mm3 (150-450); Red Blood Count 3.96 M/mm3 (4.1-5.4); Red Cell Distribution Width 13.3 % (11.5-14.0); White Blood Count 10.1 K/mm3 (4.0-10.5)
[2021-07-30 18:27] LABS: INR 0.98 (0.8-3.0); PROTIME 11.6 SECONDS (9.4-12.5)
[2021-07-30 18:31] LABS: Calcium 9.2 mg/dL (8.4-10.2); Creatinine 1 1.05 mg/dL (0.52-1.04); EST GLOMERULAR FILTRATION RATE 53.3 ML/MIN; Potassium 3.2 mmol/L (3.5-5.1)
[2021-07-30] MEDS ORDERED: APRESOLINE 20 MG/ML INJ IV PRN (20:52)
[2021-07-30] MEDS ORDERED: TYLENOL 325 MG PO PRN (22:39)
[2021-07-30] MEDS ORDERED: Zofran 4 MG/2 ML VIAL IV PRN (22:39)
[2021-07-30] MEDS ORDERED: Hydromorphone 1 mg/ml Injection IV PRN (22:39)
[2021-07-31 04:45] LABS: Absolute Neutrophil Ct (ANC) 5.44 (1.4-6.9); BASOPHIL % 0.2 % (0.0-0.4); Basophil (Absolute #) 0.02 (0-0.4); Eosinophil % 1.3 % (0.00-5.0); Eosinophil (Absolute #) 0.11 (0-0.5); Hematocrit 38.2 % (35-47); Lymphocyte (Absolute #) 1.87 (1.0-4.6); Lymphocytes % 22.7 % (24.0-44.0); Mean Corpuscular Hemoglobin 29.9 pg (26-32); Mean Corpuscular Hgb Concent. 31.4 g/dl (32-36); Mean Platelet Volume 11.3 fl (7.5-11.0); Monocyte (Absolute #) 0.78 (0.0-1.3); Monocytes % 9.5 % (0.0-12.0); Neutrophil % 66.3 % (36.0-66.0); Platelet Count 274 K/mm3 (150-450); Red Blood Count 4.02 M/mm3 (4.1-5.4); Red Cell Distribution Width 13.6 % (11.5-14.0); White Blood Count 8.2 K/mm3 (4.0-10.5)
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
[2021-07-31 09:00] VITALS: BP 170/77; PULSE 101; O2SAT 86
[2021-07-31] MEDS ORDERED: DOCUSATE SODIUM 50 MG PO PRN (09:57)
[2021-07-31] MEDS ORDERED: MV CAL MIN PO SCH (10:00)
[2021-07-31] MEDS ORDERED: Vitamin B-12 500 MCG PO SCH (10:00)
[2021-07-31] MEDS ORDERED: NON-FORMULARY ITEM (Omeprazole [Omeprazole] 20 MG Capsule.Dr) PO SCH (10:00)
[2021-07-31] MEDS ORDERED: [UNRECOGNIZED DRUG - OTHER] PO SCH (10:00)
[2021-07-31] MEDS ORDERED: SYNTHROID 75 MCG PO SCH (10:00)
[2021-07-31] MEDS ORDERED: NON-FORMULARY ITEM (Iron [Iron] 18 MG Tablet) PO SCH (10:00)
[2021-07-31] MEDS ORDERED: Vitamin C 500 MG PO SCH (10:00)
[2021-07-31] MEDS ORDERED: VITAMIN D PO SCH (10:00)
[2021-07-31] MEDS ORDERED: ASCORBIC ACID 1000 MG PO SCH (10:00)
[2021-07-31] MEDS ORDERED: Apresoline 25 MG TABLET PO SCH (10:00)
[2021-07-31] MEDS ORDERED: Lopressor 50 MG PO SCH (10:00)
[2021-07-31] MEDS ORDERED: IRON PO SCH (10:00)
[2021-07-31] MEDS ORDERED: NON-FORMULARY ITEM (Cyanocobalamin (Vitamin B-12) [Vitamin B12] 2,500 MCG Tablet) PO SCH (10:00)
[2021-07-31] MEDS ORDERED: Protonix 40MG Tablet PO SCH (10:00)
[2021-07-31] MEDS ORDERED: LUT PO SCH (10:00)
[2021-07-31] MEDS ORDERED: PLAVIX 75 MG Tablet PO SCH (10:00)
[2021-07-31] MEDS ORDERED: FOLIC ACID PO SCH (10:00)
[2021-07-31] MEDS ORDERED: THERAGRAN MULTIVITAMIN PO SCH (10:00)
[2021-07-31] MEDS ORDERED: FEOSOL 325 MG PO SCH (10:00)
[2021-07-31] MEDS ORDERED: NON-FORMULARY ITEM (Hydralazine Hcl [Hydralazine Hcl] 50 MG Tablet) PO SCH (10:00)
[2021-07-31] MEDS ORDERED: ZOCOR 20MG PO SCH (10:00)
[2021-07-31] MEDS ORDERED: Ocuvite Tablet PO SCH (10:00)
[2021-07-31] MEDS ORDERED: Colace 100 MG PO PRN (10:05)
[2021-08-04] MEDS ORDERED: Fosamax 70 MG PO SCH (06:00)
== END 2021-07-31 10:14 | disposition home or self-care (01) ==
LOC: ED 15:31 → MED SURG 22:37
PROVIDERS: ADMIT Family Medicine; ATTEND Family Medicine
DX: S22.42XA Multiple fractures of ribs, left side, initial encounter for closed fracture (principal); I10 Essential (primary) hypertension; E78.00 Pure hypercholesterolemia, unspecified; W01.190A Fall on same level from slipping, tripping and stumbling with subsequent striking against furniture, initial encounter; Z79.899 Other long term (current) drug therapy; Z79.01 Long term (current) use of anticoagulants; Z86.73 Personal history of transient ischemic attack (TIA), and cerebral infarction without residual deficits; Z20.822 Contact with and (suspected) exposure to COVID-19
CPT/HCPCS: 36000; 36415; 71250; 74176; 80048; 85025; 85610; 96374; 96375; 99285; G0378; U0003; J0360; J1170; J2405

== ENCOUNTER 2021-08-03 13:44 | Emergency (ER) | payer MEDICARE ==
[2021-08-03] MEDS ORDERED: Sodium Chloride 0.9% 1000 ML 1,000 ML IV STA (14:03)
[2021-08-03] MEDS ORDERED: Sodium Chloride 0.9% 1000 ML 1,000 ML ONE (14:07)
[2021-08-03 14:42] LABS: Absolute Neutrophil Ct (ANC) 5.98 (1.4-6.9); BASOPHIL % 0.3 % (0.0-0.4); Basophil (Absolute #) 0.02 (0-0.4); Eosinophil (Absolute #) 0.16 (0-0.5); Hematocrit 39.1 % (35-47); Hemoglobin 12.5 gm/dl (12.0-16.0); Lymphocyte (Absolute #) 1.31 (1.0-4.6); Lymphocytes % 16.4 % (24.0-44.0); Mean Cell Volume 93.5 fl (78-100); Mean Corpuscular Hemoglobin 29.9 pg (26-32); Mean Platelet Volume 11.8 fl (7.5-11.0); Monocyte (Absolute #) 0.53 (0.0-1.3); Monocytes % 6.6 % (0.0-12.0); Neutrophil % 74.7 % (36.0-66.0); Platelet Count 206 K/mm3 (150-450); Red Blood Count 4.18 M/mm3 (4.1-5.4); Red Cell Distribution Width 13.2 % (11.5-14.0)
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
[2021-08-03 14:53] LABS: ALKALINE PHOSPHATASE 119 U/L (38-126); AMYLASE 71 U/L (30-110); ANION GAP 12.5 MEQ/L (5-15); BLOOD UREA NITROGEN 10 mg/dL (7-17); CHLORIDE 99 mmol/L (98-107); Calcium 9.4 mg/dL (8.4-10.2); Carbon Dioxide 29 mmol/L (22-30); Creatinine 1 0.91 mg/dL (0.52-1.04); EST GLOMERULAR FILTRATION RATE > 60.0 ML/MIN; Glucose 121 mg/dL (74-106); LIPASE 124 U/L (23-300); Potassium 3.6 mmol/L (3.5-5.1); SGOT/AST 36 U/L (14-36); SGPT/ALT 17 U/L (0-35); SODIUM 136 mmol/L (137-145); Total Protein 7.5 g/dL (6.3-8.2)
[2021-08-03] MEDS ORDERED: CITROMA 296 ML PO ONE (15:14)
[2021-08-03] MEDS ORDERED: CITROMA 296 ML ONE (15:31)
[2021-08-03] MEDS ORDERED: Lopressor 50 MG ONE (15:51)
[2021-08-03] MEDS ORDERED: Apresoline 25 MG TABLET ONE (16:05)
[2021-08-03] MEDS ORDERED: Apresoline 25 MG TABLET PO ONE (16:06)
[2021-08-03 16:30] VITALS: BP 190/90; PULSE 107; O2SAT 98
--- NOTE | 2021-08-03 19:42 | XRAY ---
Indication: Abdomen pain and constipation. Comparison: Chest exam August 07, 2020. 2 view abdomen nonacute and nonobstructed with mild fecal debris in left hemicolon and rectum. Ingested medication/pill right of L2. Previous cholecystectomy. Osseous structures intact with osteopenia and degenerative changes throughout the spine. Single AP chest demonstrates CT proven left 7/8 rib fractures with new left base hemothorax/atelectasis. No pneumothorax. Stable right base subsegmental atelectasis/scarring. Heart not enlarged. Remaining bony thorax intact again with osteopenia and degenerative changes. Impression: Negative abdomen. Left 7/8 rib fractures with new left base hemothorax/atelectasis
[2021-08-04] MEDS ORDERED: Lopressor 50 MG PO ONE (16:09)
== END 2021-08-03 16:16 | disposition home or self-care (01) ==
LOC: ED 13:44
DX: K59.00 Constipation, unspecified (principal); K30 Functional dyspepsia; R10.9 Unspecified abdominal pain; R10.84 Generalized abdominal pain
CPT/HCPCS: 36415; 74022; 80053; 82150; 83690; 84484; 85025; 99284; A9270-GY

== ENCOUNTER 2021-08-25 03:34 | Emergency (ER) | payer MEDICARE ==
[2021-08-25] MEDS ORDERED: solu-MEDROL 125 MG, Sterile H2O 10 ml 2 ML IV ONE ×2 (04:05)
[2021-08-25] MEDS ORDERED: solu-MEDROL ONE (04:12)
[2021-08-25] MEDS ORDERED: Sterile H2O 10 ml IJ ONE (04:12)
--- NOTE | 2021-08-25 04:26 | ERPHSYRPT ---
- History of Present Illness Time Seen by Provider: 08/25/21 03:45 Source: patient Exam Limitations: no limitations Patient Subjective Stated Complaint: My son cleaned the windows with clorox bleach around 2 weeks ago, and I've had a cough since, and I woke up feeling sob. Triage Nursing Assessment: pt c/o sob, states, "my son cleaned the windows with clorox bleach and I've had a cough ever since but I woke up tonight feeling sob. Lung franco clear, O2 sats 98% on rm air. Pt has a cough, gets mucus up occassionally, brown in color. Pt c/o pain to diaphragm area going straight across. Pt states, "I broke a couple ribs in July". Pt appears anxious, her son on Wednesday. Physician History: This is an 81-year-old white female who presents to the emergency department with primary complaints of cough and shortness of breath. Patient was exposed to Clorox bleach 2 weeks ago, she fractured ribs in July, and 2 days ago she found her son in bed. Patient presents also with a degree of anxiety. Her room air oxygenation today is 98%. She has no chest pain. She has no abdominal pain. She has no fevers. She has no nausea vomiting or diarrhea. Timing/Duration: today Activities at Onset: sleep Severity of Dyspnea-Max: mild Severity of Dyspnea-Current: mild Possible Cause: no prior episodes Modifying Factors: Improves With: coughing Associated Symptoms: anxiety, cough, No chest pain/discomfort Allergies/Adverse Reactions: aspirin Allergy (Verified 08/25/21 03:50) Hives Home Medications: Simvastatin 20Mg [Zocor 20Mg] 40 mg PO DAILY 05/31/12 [History] Levothyroxine Sodium 75 Mcg [Synthroid 75 Mcg] 1 tab PO DAILY 09/24/15 [History] Metoprolol Tartrate 50 mg [Lopressor 50 MG] 1 tab PO DAILY 09/24/15 [History] Cholecalciferol (Vitamin D3) [Vitamin D3] 400 unit PO DAILY 11/22/17 [History] Cyanocobalamin (Vitamin B-12) [Vitamin B12] 500 mcg PO DAILY 11/22/17 [History] Iron 65 mg PO DAILY 11/22/17 [History] Mv,Gerardo,Min/Iron/Folic Acid/Lut [Complete Multi Tablet] 1 each PO DAILY 11/22/17 [History] Ascorbic Acid [Vitamin C] 1,000 mg PO DAILY 08/07/20 [History] C,E,Zinc,Copper 11/Ketij6y/Lut [Ocuvite Adult 50 Plus Softgel] 1 cap PO DAILY 08/07/20 [History] Clopidogrel Bisulfate [Clopidogrel] 75 mg PO DAILY 08/07/20 [History] Docusate Sodium [Stool Softener] 50 mg PO DAILY PRN PRN 08/07/20 [History] Hydralazine HCl 50 mg PO TID 08/07/20 [History] Omeprazole 20 mg PO TID 08/07/20 [History] Alendronate Sodium [Fosamax] 70 mg PO WEEKLY 07/30/21 [History] Hx Tetanus, Diphtheria Vaccination/Date Given: Yes Hx Influenza Vaccination/Date Given: Yes Hx Pneumococcal Vaccination/Date Given: Yes Immunizations Up to Date: Yes Travel Risk - International Travel Have you traveled outside of the country in past 3 weeks: No - Coronavirus Screening Are you exhibiting any of the following symptoms?: Yes Symptoms: Cough: New Onset, Shortness of Breath Close contact with a COVID-19 positive Pt in past 14-21 Days: No - Vaccine Status Have you recieved a Covid-19 vaccination: Yes Ramp Lead: Moderna - Vaccination Dates Date of 2cond Vaccination (if applicable): 01/2021 Comment: pt had booster shot too - Review of Systems Constitutional: No Symptoms Eyes: No Symptoms Ears, Nose, & Throat: No Symptoms Respiratory: Cough, Dyspnea Cardiac: No Symptoms Abdominal/Gastrointestinal: No Symptoms Genitourinary Symptoms: No Symptoms Musculoskeletal: No Symptoms Skin: No Symptoms Neurological: No Symptoms Psychological: No Symptoms Endocrine: No Symptoms Hematologic/Lymphatic: No Symptoms Immunological/Allergic: No Symptoms All Other Systems: Reviewed and Negative - Past Medical History Pertinent Past Medical History: Yes Neurological History: Stroke ENT History: No Pertinent History Cardiac History: High Cholesterol, Hypertension Respiratory History: Pneumonia Endocrine Medical History: Hypothyroidism Musculoskeletal History: Fractures, Osteoarthritis GI Medical History: No Pertinent History History: Other Psycho-Social History: No Pertinent History Female Reproductive Disorders: No Pertinent History Other Medical History: HX FX LEFT ANKLE WITH ORIF. PER PATIENT ACHILLES TENDON TEARS BILATERALLY - LEFT REPAIRED ABOUT 4 YEARS AGO. STATES HAD A STROKE AT 18 WITH A "BUSTED BLOOD VESSEL IN THE BACK OF MY HEAD AND WAS IN THE [facility] 6 WEEKS: AFFECTING LEFT SIDE AND "HAD TO LEARN TO WALK AGAIN". HAD ANOTHER STROKE 10 YEARS AGO AFFECTING GAIT BUT WAS NOT HOSPITALIZED. STATES SHE HAS MINI STROKES WHICH MAKE HER SLEEPY AND AFFECT HER WALKING BRIEFLY THEN WILL GET BETTER. - Past Surgical History Past Surgical History: Yes Neuro Surgical History: No Pertinent History Cardiac: No Pertinent History Respiratory: No Pertinent History Gastrointestinal: Appendectomy, Cholecystectomy Genitourinary: No Pertinent History Musculoskeletal: Orthopedic Surgery Female Surgical History: No Pertinent History Other Surgical History: left heel and ankle - Social History Smoking Status: Never smoker Exposure to second hand smoke: Yes Drug Use: none Patient Lives Alone: Yes - Female History Hx Now: No - Nursing Vital Signs Nursing Vital Signs: Initial Vital Signs Temperature 97.2 F 08/25/21 03:35 Pulse Rate 88 08/25/21 03:35 Respiratory Rate 18 08/25/21 03:35 Blood Pressure 184/85 08/25/21 03:35 O2 Sat by Pulse Oximetry 98 08/25/21 03:35 Pain Scale Pain Intensity 0 - Physical Exam General Appearance: no apparent distress, alert, anxiety, obese Eye Exam: PERRL/EOMI, eyes nml inspection Ears, Nose, Throat Exam: normal ENT inspection, normal pharynx, hearing decreased (Chronic) Neck Exam: normal inspection, non-tender, supple, full range of motion Respiratory Exam: normal breath sounds, lungs clear, airway intact, No chest tenderness, No respiratory distress Cardiovascular/Chest Exam: normal heart sounds, regular rate/rhythm Abdominal/Gastrointestinal Exam: soft, normal bowel sounds, No tenderness Rectal Exam: not done Extremity Exam: non-tender, normal range of motion, normal inspection Neurologic Exam: alert, oriented x 3, cooperative, 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 There is new sinus tachycardia and new borderline left axis deviation on today's EKG when compared to EKG dated 08/07/2020.) Ordered Tests: Active Orders 24 hr Category Date Time Status EKG-ER Only STAT Care 08/25/21 04:05 Active IV Insertion STAT Care 08/25/21 04:05 Active Pulse Oximetry (ED) STAT Care 08/25/21 04:05 Active CHEST 1 VIEW (PORTABLE) Stat Exams 08/25/21 04:05 Taken CHEST WITH CONTRAST [CT] Stat Exams 08/25/21 05:22 Taken CBC W DIFF Stat Lab 08/25/21 04:39 Completed CMP Stat Lab 08/25/21 04:39 Completed CULTURE,SPUTUM Stat Lab 08/25/21 04:05 Ordered D-DIMER QUANTITATIVE Stat Lab 08/25/21 04:39 Completed INFLUENZA A+B RONIT Stat Lab 08/25/21 04:39 Completed Lactic Acid Stat Lab 08/25/21 04:25 Completed NT PRO BNP Stat Lab 08/25/21 04:39 Completed TROPONIN Q3H Lab 08/25/21 04:39 Completed TROPONIN Q3H Lab 08/25/21 07:15 Ordered TROPONIN Q3H Lab 08/25/21 10:15 Ordered TROPONIN Q3H Lab 08/25/21 13:15 Ordered TROPONIN Q3H Lab 08/25/21 16:15 Ordered UA W/RFX UR CULTURE Stat Lab 08/25/21 05:45 Completed Medication Summary Discontinued Medications Generic Name Dose Route Start Last Admin Trade Name Freq PRN Reason Stop Dose Admin Methylprednisolone Sodium 0 mg 08/25/21 04:05 08/25/21 04:13 Succinate 125 mg/ Sterile IV 08/25/21 04:06 125 mg Water 2 ml STAT ONE Administration Sodium Chloride 500 mls @ 500 mls/hr 08/25/21 05:22 08/25/21 05:47 Sodium Chloride 0.9% 500 Ml IV 08/25/21 06:21 500 mls/hr .Q1H ONE Administration Methylprednisolone Sodium Succinate Confirm 08/25/21 04:12 Methylprednis Sod Succ 125 Mg/2 Ml Vial Administered 08/25/21 04:13 Dose 125 mg .ROUTE .STK-MED ONE Sterile Water Confirm 08/25/21 04:12 Water For Injection,Sterile 10 Ml Vial Administered 08/25/21 04:13 Dose 10 ml IJ .STK-MED ONE Lab/Rad Data: Laboratory Result Diagrams 08/25/21 04:39 08/25/21 04:39 Laboratory Results 08/25/21 08/25/21 08/25/21 Range/Units 05:45 04:39 04:39 WBC (4.0-10.5) K/mm3 RBC (4.1-5.4) M/mm3 Hgb (12.0-16.0) gm/dl Hct (35-47) % MCV (78-100) fl MCH (26-32) pg MCHC (32-36) g/dl RDW (11.5-14.0) % Plt Count (150-450) K/mm3 MPV (7.5-11.0) fl Gran % (36.0-66.0) % Eos # (Auto) (0-0.5) Absolute Lymphs (auto) (1.0-4.6) Absolute Monos (auto) (0.0-1.3) Lymphocytes % (24.0-44.0) % Monocytes % (0.0-12.0) % Eosinophils % (0.00-5.0) % Basophils % (0.0-0.4) % Absolute Granulocytes (1.4-6.9) Basophils # (0-0.4) D-Dimer 775 H* (215-500) ng/mL Sodium (137-145) mmol/L Potassium (3.5-5.1) mmol/L Chloride (98-107) mmol/L Carbon Dioxide (22-30) mmol/L Anion Gap (5-15) MEQ/L BUN (7-17) mg/dL Creatinine (0.52-1.04) mg/dL Estimated GFR ML/MIN Glucose (74-106) mg/dL Lactic Acid (0.4-2.0) Calcium (8.4-10.2) mg/dL Total Bilirubin (0.2-1.3) mg/dL AST (14-36) U/L ALT (0-35) U/L Alkaline Phosphatase (38-126) U/L Troponin I < 0.012 (0.000-0.034) ng/mL NT-Pro-B Natriuret Pep (0-1800) pg/mL Serum Total Protein (6.3-8.2) g/dL Albumin (3.5-5.0) g/dL Urine Color STRAW (YELLOW) Urine Appearance CLEAR (CLEAR) Urine pH 6.0 (5-6) Ur Specific [place] 1.004 (1.005-1.025) Urine Protein NEGATIVE (Negative) Urine Ketones NEGATIVE (NEGATIVE) Urine Blood NEGATIVE (0-5) Dixon/ul Urine Nitrite NEGATIVE (NEGATIVE) Urine Bilirubin NEGATIVE (NEGATIVE) Urine Urobilinogen NEGATIVE (0-1) mg/dL Ur Leukocyte Esterase TRACE (NEGATIVE) Urine WBC (Auto) 3-5 (0-5) /HPF Urine RBC (Auto) NONE (0-2) /HPF U Epithel Cells (Auto) NONE (FEW) /HPF Urine Bacteria (Auto) NONE (NEGATIVE) /HPF Urine Mucus (Auto) SLIGHT (NEGATIVE) /HPF Urine Culture Reflexed NO (NO) Urine Glucose NEGATIVE (NEGATIVE) mg/dL Influenza Type A Ag (NEGATIVE) Influenza Type B Ag (NEGATIVE) 08/25/21 08/25/21 08/25/21 Range/Units 04:39 04:39 04:39 WBC 10.2 (4.0-10.5) K/mm3 RBC 4.23 (4.1-5.4) M/mm3 Hgb 12.2 (12.0-16.0) gm/dl Hct 38.5 (35-47) % MCV 91.0 (78-100) fl MCH 28.8 (26-32) pg MCHC 31.7 L (32-36) g/dl RDW 13.7 (11.5-14.0) % Plt Count 254 (150-450) K/mm3 MPV 11.7 H (7.5-11.0) fl Gran % 57.9 (36.0-66.0) % Eos # (Auto) 0.15 (0-0.5) Absolute Lymphs (auto) 3.31 (1.0-4.6) Absolute Monos (auto) 0.82 (0.0-1.3) Lymphocytes % 32.5 (24.0-44.0) % Monocytes % 8.0 (0.0-12.0) % Eosinophils % 1.5 (0.00-5.0) % Basophils % 0.1 (0.0-0.4) % Absolute Granulocytes 5.90 (1.4-6.9) Basophils # 0.01 (0-0.4) D-Dimer (215-500) ng/mL Sodium 137 (137-145) mmol/L Potassium 3.3 L (3.5-5.1) mmol/L Chloride 103 (98-107) mmol/L Carbon Dioxide 24 (22-30) mmol/L Anion Gap 13.6 (5-15) MEQ/L BUN 8 (7-17) mg/dL Creatinine 1.08 H (0.52-1.04) mg/dL Estimated GFR 51.6 ML/MIN Glucose 129 H (74-106) mg/dL Lactic Acid (0.4-2.0) Calcium 9.2 (8.4-10.2) mg/dL Total Bilirubin 0.70 (0.2-1.3) mg/dL AST 29 (14-36) U/L ALT 13 (0-35) U/L Alkaline Phosphatase 113 (38-126) U/L Troponin I (0.000-0.034) ng/mL NT-Pro-B Natriuret Pep 361 (0-1800) pg/mL Serum Total Protein 7.0 (6.3-8.2) g/dL Albumin 3.7 (3.5-5.0) g/dL Urine Color (YELLOW) Urine Appearance (CLEAR) Urine pH (5-6) Ur Specific [place] (1.005-1.025) Urine Protein (Negative) Urine Ketones (NEGATIVE) Urine Blood (0-5) Dixon/ul Urine Nitrite (NEGATIVE) Urine Bilirubin (NEGATIVE) Urine Urobilinogen (0-1) mg/dL Ur Leukocyte Esterase (NEGATIVE) Urine WBC (Auto) (0-5) /HPF Urine RBC (Auto) (0-2) /HPF U Epithel Cells (Auto) (FEW) /HPF Urine Bacteria (Auto) (NEGATIVE) /HPF Urine Mucus (Auto) (NEGATIVE) /HPF Urine Culture Reflexed (NO) Urine Glucose (NEGATIVE) mg/dL Influenza Type A Ag NEGATIVE (NEGATIVE) Influenza Type B Ag NEGATIVE (NEGATIVE) 08/25/21 Range/Units 04:25 WBC (4.0-10.5) K/mm3 RBC (4.1-5.4) M/mm3 Hgb (12.0-16.0) gm/dl Hct (35-47) % MCV (78-100) fl MCH (26-32) pg MCHC (32-36) g/dl RDW (11.5-14.0) % Plt Count (150-450) K/mm3 MPV (7.5-11.0) fl Gran % (36.0-66.0) % Eos # (Auto) (0-0.5) Absolute Lymphs (auto) (1.0-4.6) Absolute Monos (auto) (0.0-1.3) Lymphocytes % (24.0-44.0) % Monocytes % (0.0-12.0) % Eosinophils % (0.00-5.0) % Basophils % (0.0-0.4) % Absolute Granulocytes (1.4-6.9) Basophils # (0-0.4) D-Dimer (215-500) ng/mL Sodium (137-145) mmol/L Potassium (3.5-5.1) mmol/L Chloride (98-107) mmol/L Carbon Dioxide (22-30) mmol/L Anion Gap (5-15) MEQ/L BUN (7-17) mg/dL Creatinine (0.52-1.04) mg/dL Estimated GFR ML/MIN Glucose (74-106) mg/dL Lactic Acid 1.0 (0.4-2.0) Calcium (8.4-10.2) mg/dL Total Bilirubin (0.2-1.3) mg/dL AST (14-36) U/L ALT (0-35) U/L Alkaline Phosphatase (38-126) U/L Troponin I (0.000-0.034) ng/mL NT-Pro-B Natriuret Pep (0-1800) pg/mL Serum Total Protein (6.3-8.2) g/dL Albumin (3.5-5.0) g/dL Urine Color (YELLOW) Urine Appearance (CLEAR) Urine pH (5-6) Ur Specific [place] (1.005-1.025) Urine Protein (Negative) Urine Ketones (NEGATIVE) Urine Blood (0-5) Dixon/ul Urine Nitrite (NEGATIVE) Urine Bilirubin (NEGATIVE) Urine Urobilinogen (0-1) mg/dL Ur Leukocyte Esterase (NEGATIVE) Urine WBC (Auto) (0-5) /HPF Urine RBC (Auto) (0-2) /HPF U Epithel Cells (Auto) (FEW) /HPF Urine Bacteria (Auto) (NEGATIVE) /HPF Urine Mucus (Auto) (NEGATIVE) /HPF Urine Culture Reflexed (NO) Urine Glucose (NEGATIVE) mg/dL Influenza Type A Ag (NEGATIVE) Influenza Type B Ag (NEGATIVE) - Progress Progress: improved Air Movement: good Progress Note: 08/25/21 04:26 Patient seems anxious on arrival to emergency department. She felt more calm soon after her triage. Her heart rate decreased from 113 down to normal with no intervention. She is still oxygenating 98 to 99% on room air. Respiratory therapy evaluated her as well and no recommendations or interventions are required from this standpoint. 08/25/21 06:40 Patient clinically is improved. She does not have chest pain. She is not short of breath. CAT scan of the chest with contrast shows no evidence for pulmonary embolism. There is minimal lingular and left basilar atelectasis but no infiltrate present there is redemonstration of known posterior left sixth seventh and eighth rib fractures. Blood Culture(s) Obtained: Yes Counseled pt/family regarding: lab results, diagnosis, need for follow-up, rad results - Departure Departure Disposition: Home Clinical Impression: Shortness of breath Condition: Stable Critical Care Time: No Referrals: NIA MONTES DE [facility] [Primary Care Provider] - Follow up/PCP as directed Additional Instructions: Continue taking slow deep breaths. Follow-up with your primary care physician for any pain control issues. Take all your medications as prescribed.
[2021-08-25 04:43] LABS: BASOPHIL % 0.1 % (0.0-0.4); Basophil (Absolute #) 0.01 (0-0.4); Eosinophil % 1.5 % (0.00-5.0); Eosinophil (Absolute #) 0.15 (0-0.5); Hematocrit 38.5 % (35-47); Hemoglobin 12.2 gm/dl (12.0-16.0); Lymphocyte (Absolute #) 3.31 (1.0-4.6); Lymphocytes % 32.5 % (24.0-44.0); Mean Corpuscular Hemoglobin 28.8 pg (26-32); Mean Corpuscular Hgb Concent. 31.7 g/dl (32-36); Mean Platelet Volume 11.7 fl (7.5-11.0); Monocyte (Absolute #) 0.82 (0.0-1.3); Neutrophil % 57.9 % (36.0-66.0); Platelet Count 254 K/mm3 (150-450); Red Blood Count 4.23 M/mm3 (4.1-5.4); Red Cell Distribution Width 13.7 % (11.5-14.0); White Blood Count 10.2 K/mm3 (4.0-10.5)
[2021-08-25 05:00] LABS: INFLUENZA A NEGATIVE (NEGATIVE); INFLUENZA B NEGATIVE (NEGATIVE)
[2021-08-25 05:08] LABS: ALBUMIN 3.7 g/dL (3.5-5.0); ANION GAP 13.6 MEQ/L (5-15); BILIRUBIN,TOTAL 0.7 mg/dL (0.2-1.3); Calcium 9.2 mg/dL (8.4-10.2); Creatinine 1 1.08 mg/dL (0.52-1.04); EST GLOMERULAR FILTRATION RATE 51.6 ML/MIN; Potassium 3.3 mmol/L (3.5-5.1)
[2021-08-25] MEDS ORDERED: Sodium Chloride 0.9% 500 ML 500 ML IV ONE (05:22)
[2021-08-25 06:03] LABS: Appearance CLEAR (CLEAR); Bilirubin NEGATIVE (NEGATIVE); Blood NEGATIVE Ery/ul (0-5); Glucose NEGATIVE (NEGATIVE); Ketones NEGATIVE (NEGATIVE); Leukocyte Esterase TRACE (NEGATIVE); Mucus SLIGHT /HPF (NEGATIVE); Nitrite NEGATIVE (NEGATIVE); Protein,Urine Dip NEGATIVE (Negative); Specific Gravity 1.004 (1.005-1.025); Urobilinogen NEGATIVE mg/dL (0-1)
--- NOTE | 2021-08-25 09:20 | XRAY ---
Indication: Short of breath. Elevated d-dimer. Multiple contiguous axial images obtained through the chest using 100 cc Isovue 370 contrast and PE protocol. Comparison: July 30, 2021. There is good opacification of the pulmonary arteries to include the lobar and segmental branches. No pulmonary embolus. Heart remains borderline enlarged. Aorta remains mildly arteriosclerotic without aneurysm/dissection. Stable tiny left hilar calcified nodes. No pathologic mediastinal/hilar lymphadenopathy. Enlarging moderate sized hiatal hernia with partial intrathoracic stomach. Lungs again demonstrates tiny left lower lobe calcified granuloma. No suspicious pulmonary mass, infiltrate, or effusion. Bony thorax intact again with osteopenia, flowing osteophytes throughout the spine, and left 7/8 acute rib fractures. Limited upper abdomen again demonstrates cholecystectomy clips. Impression: 1. Negative pulmonary embolus. 2. Enlarging hiatal hernia with now partial intrathoracic stomach. 3. Again borderline cardiomegaly, acute left rib fractures, chronic bony findings, and old granulomatous disease. Comment: Preliminary interpretation made by [facility]. No critical discrepancy.
--- NOTE | 2021-08-25 09:20 | XRAY ---
Indication: Cough and short of breath. Comparison: August 03, 2021. Pourable chest now clear again with a few left lung calcified granulomas. Heart not enlarged. Bony thorax intact again with mild osteopenia and degenerative changes. No new cardiopulmonary abnormalities.
[2021-08-25 17:09] VITALS: BP 172/84; PULSE 93; O2SAT 99
== END 2021-08-25 06:57 | disposition home or self-care (01) ==
LOC: ED 03:34
DX: R06.02 Shortness of breath (principal); R05.9 Cough, unspecified; I10 Essential (primary) hypertension; E78.5 Hyperlipidemia, unspecified
CPT/HCPCS: 36000; 36415; 71045; 71260; 80053; 81001; 83605; 83880; 84484; 85025; 85379; 87400; 93005; 94760; 96374; 99284; U0003; J2930